=== PATIENT | female | born 1990 | race Caucasian/White ===

== ENCOUNTER 2018-04-07 09:54 | Day surgery (SDC) | payer BC ==
[2018-03-24 18:30] VITALS: BMI 23.6
[2018-04-07] MEDS ORDERED: LIDOCAINE HCL/PF 2% SDV 5ML VIAL ONE (11:14)
[2018-04-07] MEDS ORDERED: PROPOFOL 20 ML ONE (11:15)
[2018-04-07 12:01] VITALS: BP 106/60; PULSE 78; TEMP 98
--- NOTE | 2018-04-09 17:44 | PATH ---
Surgical Pathology Report Patient Name: MIRTHA ROSSI [facility]. Rec. #: [id number] /Age/Gender: 1990 (Age: 27) / F Account: [id number] Location: [facility] Taken: 04/07/2018 Received: 04/07/2018 Reported: 04/09/2018 Physicians: Klaudia Solis M.D. Specimen(s) Received A: SECOND PORTION B: BX ANTRUM C: BX GE JUNCTION Clinical History GI bleed, dyspepsia Postoperative diagnosis: Gastritis Final Diagnosis A. SECOND PORTION DUODENUM, BIOPSY: DUODENUM MUCOSA WITH NO DIAGNOSTIC ABNORMALITIES. NO HISTOLOGIC EVIDENCE OF CELIAC DISEASE. B. ANTRUM, BIOPSY: GASTRIC MUCOSA WITH REACTIVE GASTROPATHY. IMMUNOSTAIN FOR H. PYLORI IS NEGATIVE. NEGATIVE FOR INTESTINAL METAPLASIA. C. GE JUNCTION, BIOPSY: GASTROESOPHAGEAL JUNCTION MUCOSA WITH REFLUX ESOPHAGITIS. NEGATIVE FOR INTESTINAL METAPLASIA. Electronically Signed Falguni Mitchell M.D. Gross Description A. Received in formalin, labeled "biopsy of second portion of duodenum" is a francois, irregular portion of soft tissue measuring 0.3 cm. in greatest dimension. The specimen is submitted in toto in one cassette. B. Received in formalin, labeled "biopsy at antrum" is a francois, irregular portion of soft tissue measuring 0.3 cm. in greatest dimension. The specimen is submitted in toto in one cassette. C. Received in formalin, labeled "biopsy at GE junction" is a francois, irregular portion of soft tissue measuring 0.2 cm. in greatest dimension. The specimen is submitted in toto in one cassette. 04/08/2018 saudi04/08/2018
== END 2018-04-07 12:02 | disposition home or self-care (01) ==
LOC: FASU 09:54 → FASU-ENDO 09:54
PROVIDERS: ATTEND Internal Medicine Gastroenterology
PROC: 0DB68ZX Excision of Stomach, Via Natural or Artificial Opening Endoscopic, Diagnostic (ICD-10-PCS; 2018-04-07)
PROC: 0DB48ZX Excision of Esophagogastric Junction, Via Natural or Artificial Opening Endoscopic, Diagnostic (ICD-10-PCS; 2018-04-07)
PROC: 0DB98ZX Excision of Duodenum, Via Natural or Artificial Opening Endoscopic, Diagnostic (ICD-10-PCS; principal; 2018-04-07 10:45)
DX: K21.0 Gastro-esophageal reflux disease with esophagitis (principal); K31.9 Disease of stomach and duodenum, unspecified; R10.13 Epigastric pain; K92.1 Melena
CPT/HCPCS: 84703; 88305-TC; 88342-TC